=== PATIENT | female | born 1985 | race Caucasian/White ===

== ENCOUNTER → 2017-06-29 | Outpatient (CLI) | payer OTHER ==
--- NOTE | 2017-06-29 11:14 | RADIOLOGY REPORT (SQ) ---
EXAM DESCRIPTION: U/S NON-OB PELVIS TV W/O DOP COMPLETED DATE/TIME: 06/29/2017 10:14 am REASON FOR STUDY: RLQ PAIN (R10.31) R10.2 PELVIC AND PERINEAL PAIN COMPARISON: None. TECHNIQUE: Dynamic and static grayscale images acquired of the pelvis via transvaginal approach and recorded on PACS. Additional selected color Doppler and spectral images recorded. LIMITATIONS: None. FINDINGS: UTERUS: Contour normal. No mass. ENDOMETRIAL STRIPE: No focal or generalized thickening. No masses. CERVIX: Mild endocervical fluid. No mass. RIGHT OVARY: No abnormal masses. RIGHT OVARY DOPPLER: Color Doppler flow is present, no evidence of overt torsion. LEFT OVARY: No abnormal masses. Relatively simple appearing 3.3 cm cyst without suspicious features. LEFT OVARY DOPPLER: Color Doppler flow is present, no evidence of overt torsion. FREE FLUID: None noted. OTHER: No other significant finding. MEASUREMENTS: UTERUS: 10 x 6 x 7 cm ENDOMETRIAL STRIPE: 1.5 mm RIGHT OVARY: 4 x 2 x 3 cm LEFT OVARY: 3 x 3 x 3 cm IMPRESSION: 1. Simple appearing left ovarian cyst, of no clinical significance in a patient of this age without left pelvic symptoms. Followup of asymptomatic benign ovarian cysts detected by ultrasound in PREMENOPAUSAL patients Simple cyst: *? 5 cm: no followup Note: If cyst is clinically symptomatic or otherwise concerning, other followup may be warranted. Based on recommendations of the [employer] in [employer] Consensus Conference Statement 2010 on management of asymptomatic ovarian and other adnexal cysts imaged at ultrasound. TECHNICAL DOCUMENTATION: JOB ID: [id number] [employer]- All Rights Reserved
== END ==
LOC: RAD 09:28
PROVIDERS: ATTEND Physician Assistant
DX: R10.31 Right lower quadrant pain (principal)
CPT/HCPCS: 76830